=== PATIENT | male | born 1980 | race Two or more races ===

== ENCOUNTER 2016-10-31 20:57 | Emergency (ER) | payer SELFPAY ==
[~2016-10-31] VITALS: Ht 165.1 cm; Wt 70.3 kg
[~2016-10-31 20:57] MED LIST: ALPRAZOLAM0.25 MG ORAL
[2016-10-31] MEDS ORDERED: NKM (21:55)
[2016-11-01 03:44] VITALS: BP 140/90
--- NOTE | 2016-11-01 05:12 | Emergency Room Report ---
History of Present Illness General Chief Complaint: Nausea, Vomiting, and Diarrhea Source: Patient Present Illness Allergies: Coded Allergies: No Known Allergies (Unverified , 11/21/14) Nursing Documentation-[facility] Past Medical History: No Stated History Physical Exam Vital Signs Date Time Temp Pulse Resp B/P Pulse Ox O2 Delivery O2 Flow Rate FiO2 10/31/16 21:53 98.4 99 16 140/90 99 Medical Decision Making Diagnostic Impression: Primary Impression: [facility] ER Course Patient left without being seen Last Vital Signs Date Time Temp Pulse Resp B/P Pulse Ox O2 Delivery O2 Flow Rate FiO2 11/01/16 03:44 98.4 16 140/90 99 10/31/16 21:53 99 Status: other Disposition: LEFT W/OUT BEING SEEN Condition: Unknown Referrals: NOT CHOSEN IPA/,REFERRING (PCP) IRASEMA SULLIVAN D.O. Nov 01, 2016 05:12
== END 2016-10-31 23:16 | disposition left against medical advice (07) ==
LOC: EMR 22:39
DX: R11.2 Nausea with vomiting, unspecified (principal); R19.7 Diarrhea, unspecified; Z53.21 Procedure and treatment not carried out due to patient leaving prior to being seen by health care provider
CPT/HCPCS: 99281